=== PATIENT | male | born 1985 | race Hispanic/Latino ===

== ENCOUNTER 2023-05-18 10:32 | Emergency (ER) | payer SELFPAY | END 2023-05-18 11:22 | disposition home or self-care (01) | LOC: ERS 10:32 | DX: S92.411A Displaced fracture of proximal phalanx of right great toe, initial encounter for closed fracture (principal); F17.210 Nicotine dependence, cigarettes, uncomplicated; I10 Essential (primary) hypertension; W20.8XXA Other cause of strike by thrown, projected or falling object, initial encounter ==